=== PATIENT | male | born 1960 | race Caucasian/White ===

== ENCOUNTER 2021-07-15 09:05 | Emergency (ER) | payer OTHER ==
[2021-07-15] MEDS ORDERED: CYCLOBENZAPRINE10 MG PO (11:01)
[2021-07-15] MEDS ORDERED: NAPROXEN500 MG PO (11:01)
== END 2021-07-15 11:25 | disposition home or self-care (01) ==
LOC: FER 09:05
DX: R07.89 Other chest pain (principal); I10 Essential (primary) hypertension; R05.9 Cough, unspecified
CPT/HCPCS: 71101; J1885